=== PATIENT | female | born 1965 | race Caucasian/White ===

== ENCOUNTER 2020-12-07 16:47 | Emergency (ER) | payer OTHER ==
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
[2020-12-07 19:09] VITALS: TEMP 98.7; O2SAT 98
[2020-12-07 19:14] VITALS: BP 124/71
== END 2020-12-07 18:37 | disposition home or self-care (01) ==
LOC: ER 16:47
DX: S39.012A Strain of muscle, fascia and tendon of lower back, initial encounter (principal); S16.1XXA Strain of muscle, fascia and tendon at neck level, initial encounter; S70.02XA Contusion of left hip, initial encounter; V49.40XA Driver injured in collision with unspecified motor vehicles in traffic accident, initial encounter; I10 Essential (primary) hypertension; Z88.7 Allergy status to serum and vaccine
CPT/HCPCS: 71045; 72040; 72100; 99283